=== PATIENT | female | born 1970 | race Caucasian/White ===

== ENCOUNTER 2020-12-09 12:32 | Emergency (ER) | payer OTHER ==
--- NOTE | 2020-12-09 14:13 | ED Physician Documentation ---
History of Present Illness - Stated complaint Stated Complaint: RT FT SWELLING - Chief complaint Chief Complaint: Ext Problem - History obtained from History obtained from: Patient - Additonal information Additional information: 50-year-old woman with history of recurrent right leg cellulitis presents with erythema over the past day, gradual in onset associated with mild pain and swelling. She just completed a 3k mile car journey. No prior history of clots. No chest pain shortness of breath or cough. Review of Systems Constitutional: denies: Fever, Chills Cardiac: denies: Chest pain / pressure Respiratory: denies: Dyspnea, Cough Skin: reports: Other (erythema) PD PAST MEDICAL HISTORY - Present Medications Home Medications: Ambulatory Orders Medication Instructions Recorded Confirmed cephALEXin [Keflex] 500 mg PO Q6H #28 12/09/20 - Allergies Allergies/Adverse Reactions: Allergies Allergy/AdvReac Type Severity Reaction Status Date / Time No Known Drug Allergies Allergy Verified 12/09/20 12:42 PD ED PE NORMAL - Vitals Vital signs reviewed: Yes - General General: Alert and oriented X 3, No acute distress, Well developed/nourished - HEENT HEENT: Atraumatic, PERRL, EOMI - Neck Neck: Supple, no meningeal sign - Cardiac Cardiac: RRR - Respiratory Respiratory: No respiratory distress, Clear bilaterally - Abdomen Abdomen: Non tender, Non distended - Derm Derm: Normal color, Other (Erythema to right posterior distal calf and ankle.) - Extremities Extremities: No deformity, Normal ROM s pain, Other (Bilateral lower extremity 1+ edema. Normal DP and PT pulses, sensation, capillary refill, strength) - Neuro Neuro: Alert and oriented X 3, No motor deficit, No sensory deficit Results - Vitals Vitals: Vital Signs - 24 hr 12/09/20 12:36 Temperature 36.3 C L Heart Rate 84 Respiratory 16 Rate Blood Pressure 118/68 O2 Saturation 98 Oxygen O2 Source Room air PD MEDICAL DECISION MAKING - ED course ED course: 50-year-old woman presents with negative dvt, found to have RLE cellulitis. abx prescribed. Return precautions given. She is new to the area therefore I am setting her up with a couple of options for primary doctors. Departure - Departure Disposition: 01 Home, Self Care Clinical Impression: Cellulitis Condition: Good Instructions: Cellulitis Dc, Stockings Compression Follow-Up: Sanjana Pichardo MD [Provider Admit Priv/Credential] - Rocky Rodney MD [Provider Admit Priv/Credential] - Mauricio Agarwal MD [Provider Admit Priv/Credential] - Prescriptions: cephALEXin [Keflex] 500 mg PO Q6H #28 Comments: You were seen in the emergency department for cellulitis (skin infection). Make sure that you wear compression stockings and elevate your feet to help reduce swelling. Return to the emergency department if you experience any new or worsening symptoms or have other concerns. Your ultrasound study for blood clots was normal. Please follow-up with a primary doctor this week. I am enclosing a few recommendations for establishing care.
--- NOTE | 2020-12-09 14:23 | Ultrasound Report ---
PROCEDURE: Duplex Ext Veins Right INDICATIONS: leg swelling TECHNIQUE: Real-time imaging, as well as color and pulse Doppler interrogation, were performed of the lower extr emity deep veins from the inguinal ligament to the popliteal fossa. COMPARISON: None. FINDINGS: The deep veins are normally compressible, and free of intraluminal thrombus. Color and pu lse Doppler demonstrate normal phasic intraluminal flow. There is normal augmentation response to di stal compression maneuver. There are 2 right inguinal lymph nodes which demonstrate increased cortic al thickness measuring up to 4-5 mm. These measure approximately 1.2 cm in maximum short axis diamete r and demonstrate increased vascularity, although fatty kiki are preserved. IMPRESSION: No sonographic evidence of DVT. Right inguinal lymphadenopathy is presumably reactive as there is preservation of the christiano fatty hil a. Correlate for an infectious or inflammatory process in the right lower extremity or right hemipelv is. Follow-up to resolution recommended. Reviewed by: Genaro Han MD on 12/09/2020 2:22 PM PDT Approved by: Genaro Han MD on 12/09/2020 2:22 PM PDT Station ID: [id number]
[2020-12-09 14:24] VITALS: BP 104/71
== END 2020-12-09 14:43 | disposition home or self-care (01) ==
LOC: ED 12:32
DX: L03.115 Cellulitis of right lower limb (principal)
CPT/HCPCS: 99284